=== PATIENT | male | born 1990 | race Asian ===

== ENCOUNTER 2021-11-15 22:03 | Emergency (ER) | payer BC, SELFPAY ==
[2021-11-15 22:04] VITALS: BP 167/111; PULSE 117; RESP 16; TEMP 36.9; O2SAT 98; BMI 25.0
--- NOTE | 2021-11-15 22:18 | CT_ITS ---
EXAM: CT ABDOMEN AND PELVIS WITHOUT INTRAVENOUS CONTRAST CLINICAL INDICATION: abd pain TECHNIQUE: Helically acquired images were obtained of the abdomen and pelvis without intravenous contrast. CTDIvol = ( 6.64 ) mGy, DLP = ( 354.85 ) mGycm This CT exam was performed using one or more of the following dose reduction techniques: automated exposure control, adjustment of the mA and/or kV according to patient size, and/or use of iterative reconstruction technique. This report was created using [employer] report generation technology. COMPARISON: None. FINDINGS: LOWER THORAX: Unremarkable. Lung bases are clear. No cardiomegaly. No significant pericardial effusion. ABDOMEN: LIVER: Unremarkable. Homogeneous. GALLBLADDER AND BILE DUCTS: Unremarkable. No calcified gallstones. No gallbladder distention or wall edema. No intra- or extrahepatic biliary ductal dilation. PANCREAS: Unremarkable. No focal cystic mass. SPLEEN: Unremarkable. Normal size without focal cystic or solid mass. ADRENALS: Unremarkable. No nodules. KIDNEYS AND URETERS: Unremarkable. Normal renal size and position. No hydronephrosis. STOMACH AND BOWEL: Unremarkable. No stomach or bowel distention. No focal inflammatory change. PELVIS: APPENDIX: No evidence of acute appendicitis. BLADDER: Unremarkable. REPRODUCTIVE: Unremarkable as visualized. No mass. ABDOMEN and PELVIS: INTRAPERITONEAL SPACE: Unremarkable. No ascites or other fluid collection. No free air. BONES/JOINTS: Unremarkable. No suspicious lytic or blastic abnormality. SOFT TISSUES: Unremarkable. No discrete abdominal or pelvic wall hernia. VASCULATURE: Unremarkable. Abdominal aorta is non-dilated. LYMPH NODES: Unremarkable. No enlarged lymph nodes. CT/Abdomen/Pelvis without Cont IMPRESSION: Stool and gas throughout the colon. No acute disease or bowel obstruction. Electronically Signed: Yousif Gould MD at 0:59 EDT ,
--- NOTE | 2021-11-15 22:20 | EX.ED.DYSGE1 ---
HPI History of Present Illness Chief Complaint: Other, Pain/Inj Informant: patient Narrative Narrative: Patient present secondary to worsened abdominal pain. 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 Today the pain significantly worsened and is more stabbing in nature. He holds his left mid abdomen and describing the area of pain. He does report nausea but no vomiting. No diarrhea. No fever or chills. He had told nursing staff that his arm and leg hurt on the left side as well and he felt that they were different colors than the right side. There was no differential noted on their exam. PFSH PFSH Medical History no medical history no medical history Home Medications pantoprazole [Protonix] 40 mg PO DAILY 28 Days #28 tab 11/16/21 [Rx Last Taken Unknown] polyethylene glycol 3350 [Miralax] 17 g PO DAILY #14 ea 11/16/21 [Rx Last Taken Unknown] Allergy/AdvReac Type Severity Reaction Status Date / Time No Known Allergies Allergy Verified 11/15/21 22:08 Surgical History no surgical history no surgical history Social History Smoking Status: Never smoker ROS ROS ED Constitutional Constitutional ED: Denies chills or fever(s) Eyes Eyes: Denies blurry vision ENT ENT ED: Denies ear pain or rhinorrhea Cardiovascular Cardiovascular: Denies chest pain or palpitations Respiratory/Chest Respiratory/Chest: Denies cough or dyspnea Gastrointestinal Gastrointestinal: Reports abdominal pain and nausea; Denies diarrhea or vomiting Genitourinary Genitourinary ED: Denies dysuria or hematuria Musculoskeletal Musculoskeletal: Denies back pain or neck pain Integumentary Denies rash Neurologic Neurologic: Denies weakness Allergic/Immunologic Allergic/Immunologic ED: Denies urticaria EXAM Physical Exam Const Vital Signs: 11/15/21 22:04 11/15/21 22:35 11/16/21 01:20 Temperature 98.4 F 98.6 F Temperature Source Temporal Oral Pulse Rate 117 H 91 Respiratory Rate 16 20 H 16 Blood Pressure 167/111 H 142/100 H Blood Pressure Mean 129 114 Pulse Ox 98 98 Oxygen Delivery Method Room Air Room Air Positive well nourished and well developed General Appearance ED: well developed HEENT Reports moist mucous membranes Neck supple Chest Wall inspection of chest normal and palpation of chest normal Resp normal respiratory effort and clear to auscultation bilaterally Cardio Rate: tachycardic GI GI Narrative: Mid abdominal tenderness of patient with voluntary guarding. Hypoactive bowel sounds. Extremity normal to inspection Neuro oriented x3 Sensorium / Orientation: alert Psych Mood & Affect: anxious Skin no rashes or lesions noted MDM MDM MDM Narrative Medical decision making narrative: Patient was given Toradol and Zofran for pain and nausea. Lab work and CT flank obtained. Urinalysis ordered. Lab Data Attestation: I reviewed the patient's lab results. Labs: Laboratory Results - last 24 hr 11/15/21 11/15/21 11/16/21 22:28 22:28 00:07 WBC 15.5 H RBC 5.67 Hgb 17.7 H Hct 50.3 MCV 88.7 MCH 31.2 MCHC 35.2 RDW Std Deviation 39.8 RDW Coeff of Tj 12.2 Plt Count 396 MPV 8.8 Immature Gran % (Auto) 0.400 Neut % (Auto) 76.8 H Lymph % (Auto) 15.0 L [place] % (Auto) 6.8 Eos % (Auto) 0.3 Baso % (Auto) 0.7 Absolute Neuts (auto) 11.9 H Absolute Lymphs (auto) 2.32 Nucleated RBC % 0 Sodium 140 Potassium 3.2 L Chloride 106 Carbon Dioxide 25.0 Anion Gap 9 BUN 10 Creatinine 1.22 Estim Creat Clear Calc 100.97 Est GFR (MDRD) Af Amer 90 Est GFR (MDRD) Non-Af 74 BUN/Creatinine Ratio 8.2 L Glucose 147 H Calcium 9.9 Total Bilirubin 5.20 H Direct Bilirubin 0.25 AST 23 ALT 24 Alkaline Phosphatase 59 Total Protein 8.0 Albumin 4.9 Globulin 3.1 Lipase 58 L Urine Color Yellow Urine Clarity Clear Urine pH 7.0 Ur Specific [place] 1.015 Urine Protein 30 H Urine Glucose (UA) Normal Urine Ketones 5 H Urine Occult Blood 10 H Urine Nitrite Negative Urine Bilirubin Negative Urine Urobilinogen Normal Ur Leukocyte Esterase Negative Urine RBC 0 SEEN Urine WBC 0 SEEN Ur Squamous Epith Cells 0 SEEN Urine Bacteria 0 SEEN Urine Mucus 0 SEEN Radiography Diagnostic Testing: Clinical Impression(s) from Imaging Studies Abdomen/Pelvis CT 11/15/21 22:18 IMPRESSION: Stool and gas throughout the colon. No acute disease or bowel obstruction. Electronically Signed: Yousif Gould MD at 0:59 EDT , Treatment and Re-Evaluation Narrative: Lab work does reveal white count of 15.5 with 76% neutrophils. Chemistry studies significant for mildly low potassium at 3.2. His total bilirubin is 5.2. 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 Urinalysis unremarkable. CT flank reveals increased stool. No abnormalities noted at the gallbladder. With patient's white count and pain with elevated total bili I did speak with Dr. Barreto, on-call for surgery. She suggested starting the patient on Protonix and MiraLAX to treat his constipation. He can follow-up in the office if not improving. This was discussed with patient and prescription sent to local pharmacy for him. Discharge Plan Triage Chief Complaint: Other, Pain/Inj ED Provider: Marleni Sparks Dx/Rx/DC Orders Clinical Impression: Abdominal pain, Constipation Instructions: Abdominal Pain, ED Constipation (Adult) Prescriptions: New pantoprazole [Protonix] 40 mg tablet,delayed release (DR/EC) 40 mg PO DAILY 28 Days Qty: 28 RF: 0 polyethylene glycol 3350 [Miralax] 17 gram powder in packet 17 g PO DAILY Qty: 14 RF: 0 Primary Care Provider: Care Physician,No Primary Referrals: Marline Barreto MD [STAFF PHYSICIAN] - As Needed Care Physician,No Primary [Primary Care Provider] - Disposition Disposition: Home, Self Care Discharge Date/Time: 11/16/21 02:19
[2021-11-15 22:35] VITALS: BP 142/100; PULSE 91; RESP 20; TEMP 37; O2SAT 98
[2021-11-15 22:41] LABS: Absolute Lymphocyte Count 2.32 X10^3/uL (0.83-4.51); Absolute Neutrophil Count 11.9 X10^3/uL (2.0-7.7); Basophil# 0.11 X10^3/uL; Basophil% 0.7 % (0-1); Eosinophil# 0.04 X10^3/uL; Eosinophils% 0.3 % (0-5); Hematocrit 50.3 % (40-54); Hemoglobin 17.7 g/dL (13.0-16.5); Lymphocyte # 2.32 X10^3/ul (0.83-4.51); Mean Corp Hgb Conc 35.2 g/dL (32-36); Mean Corpuscular Hgb 31.2 pg (27.0-32.0); Mean Corpuscular Volume 88.7 fL (80-94); Mean Platelet Vol. 8.8 fl (6.2-12.0); Monocyte# 1.06 X10^3/uL; Monocyte% 6.8 % (0-10); NRBC Flagged by Analyzer 0 % (0-5); Neutrophil # 11.89 X10^3/uL (2.7-7.7); Neutrophil % 76.8 % (47-70); Platelet Count 396 K/mm3 (150-450); RBC Distribution Width CV 12.2 % (11.6-14.6); RBC Distribution Width SD 39.8 fl (35.1-43.9); Red Blood Count 5.67 M/mm3 (4.6-6.2); White Blood Count 15.5 K/mm3 (4.4-11.0)
[2021-11-15 22:57] LABS: AST(SGOT) 23 U/L (15-37); Alanine Aminotransfer ALT/SGPT 24 U/L (16-61); Albumin, Serum 4.9 g/dL (3.2-5.0); Alkaline Phosphatase 59 U/L (45-117); Anion Gap 9 (5-15); BUN 10 mg/dL (7-18); BUN/Creat Ratio 8.2 RATIO (10-20); Bilirubin, Direct 0.25 mg/dL (0.00-0.30); Calcium,Total 9.9 mg/dL (8.5-10.1); Chloride 106 mmol/L (98-107); Creatinine, Serum 1.22 mg/dL (0.70-1.30); EST Glomerular Filtration Rate 74 mL/min (>60); Est Glom Filt Rate - Afr Amer 90 mL/min (>60); Estimated Creatinine Clearance 100.97 ml/min; Globulin 3.1 g/dL (2.2-4.2); Glucose 147 mg/dL (74-106); Lipase 58 U/L (73-393); Potassium 3.2 mmol/L (3.5-5.1); Sodium Level 140 mmol/L (136-145)
[2021-11-15] MEDS: Ondansetron 4 MG/2 ML Vial IV (23:03)
[2021-11-15] MEDS: 0.9% Normal Saline 1,000 ML 150 ML IV (23:03)
[2021-11-15] MEDS: Ketorolac 30 MG/ML Syringe IV (23:03)
[2021-11-16 00:29] LABS: Bacteria 0 SEEN /hpf (None Seen); Mucous, Urine 0 SEEN /hpf (<or=2+); Red Blood Cells-Urine 0 SEEN /hpf (0-5); Squamous Epithelial Cells - UA 0 SEEN /hpf (0-5); White Blood Cells 0 SEEN /hpf (0-5)
[2021-11-16] MEDS: proMETHazine 25 MG Tablet PO (00:30)
[2021-11-16 00:38] LABS: Color, Urine Yellow (Yellow); Glucose, Dipstick Normal (Normal); Ketone-Dipstick 5 mg/dl (Negative); Leukocyte Esterase-Dipstick Negative /ul (Negative); Nitrite-Dipstick Negative (Negative); Occult Blood-Urine 10 /ul (Negative); Protein-Dipstick 30 mg/dl (Negative); Specific Gravity, Urine 1.015 (1.002-1.030); Urine Bilirubin Dipstick Negative (Negative); Urine Clarity Clear (Clear); Urine Urobilinogen Normal (Normal)
[2021-11-16 01:20] VITALS: RESP 16
--- NOTE | 2021-11-16 01:20 | ED.RN ---
PATIENT REMOVED IV.
== END 2021-11-16 02:19 | disposition home or self-care (01) ==
PROVIDERS: Emergency Provider Emergency Medicine; Visit Provider Emergency Medicine
DX: K59.00 Constipation, unspecified (principal)
CPT/HCPCS: 74176; 80048; 80076; 81001; 83690; 85025; 96361; 96374; 96375; 99282; J7030; A4216; J2405

== ENCOUNTER 2021-11-16 18:10 | Emergency (ER) | payer BC, SELFPAY ==
[2021-11-16 18:11] VITALS: BP 145/90; PULSE 78; RESP 14; TEMP 36.6; O2SAT 98; BMI 25.0
--- NOTE | 2021-11-16 18:23 | ED.VIS.LOWEX ---
HPI History of Present Illness Chief Complaint: Lower Extremity Injury Detail of Chief Complaint: Pain due to puncture wound plantar surface right foot due to glass Informant: patient Occured/Mechanism Comment: Broken glass/puncture wound Onset/Context/Timing Context: Sudden Onset Timing: Continuous (Pain is continuous, states he remove the foreign body last evening) Quality of Pain: Dull Current Severity: Mild Maximum Severity: Moderate Worsened by: Weightbearing Relieved by: Nothing Associated Symptoms Associated Symptoms: Negative for Parasthesia, Weakness and Loss of Funtion Narrative Narrative: Patient is a 31-year-old male presents with puncture wound plantar surface right foot. There is a wound noted. There is no erythema, warmth, induration or fluctuance. There is no lymphangitis. No drainage was noted with palpation and pressure to the area. He denies fever, chills or night sweats. He is not diabetic. He is on no immunosuppressive meds. He was not wearing shoes. Tetanus is unknown. Tetanus Immunization: Unknown Prior similar symptoms: No Recent Illness/Hospitalization: No PFSH PFSH Home Medications pantoprazole [Protonix] 40 mg PO DAILY 28 Days #28 tab 11/16/21 [Rx Last Taken Unknown] polyethylene glycol 3350 [Miralax] 17 g PO DAILY #14 ea 11/16/21 [Rx Last Taken Unknown] Allergy/AdvReac Type Severity Reaction Status Date / Time No Known Allergies Allergy Verified 11/16/21 18:11 Social History (Updated 11/16/21 @ 18:[address] Filippo Paez MD) household members: spouse Smoking Status: Never smoker substance use type: does not use ROS ROS ED Constitutional Constitutional ED: Denies chills, fever(s), subjective, sweats or weight loss Musculoskeletal Musculoskeletal: Denies arthralgias, back pain, myalgias or neck pain Integumentary Reports other Details: Puncture wound plantar surface right foot ; Denies abscess, Abrasions or rash Neurologic Neurologic: Denies paresthesias or weakness Hematologic/Lymphatic Hematologic/Lymphatic: Denies easy bleeding or easy bruising EXAM Physical Exam Const Vital Signs: 11/16/21 18:11 Temperature 98 F Temperature Source Temporal Pulse Rate 78 Respiratory Rate 14 Blood Pressure 145/90 H Blood Pressure Mean 108 Pulse Ox 98 Oxygen Delivery Method Room Air Positive well nourished and well developed General Appearance ED: well developed and NAD HEENT normocephalic and atraumatic Eyes PERRL Eyes Narrative: Extract muscle intact. Sclerae anicteric. Neck full ROM Resp normal respiratory effort Cardio regular rate and regular rhythm Extremity full ROM; Negative for normal to inspection Extremity Narrative: Puncture wound plantar surface of the right foot in the proximity of the second third metatarsal head. There is no evidence infection as previously described. General Extremety ED: Yes weight-bearing difficulty; Negative for cyanosis or edema General Extremity: weight-bearing difficulty; Negative for cyanosis or edema Neuro oriented x3 and CN's II-XII intact bilaterally Sensorium / Orientation: alert Motor Exam: strength 5/5 throughout Psych mental status grossly normal Skin No no wounds Lesions: no lesions Rashes: no rashes Trauma: puncture MDM MDM MDM Narrative Medical decision making narrative: X-ray was obtained to confirm the patient removed the glass in total. Tetanus was updated. Since there is no foreign body no evidence of infection antibiotics are not warranted or indicated. Radiography X-Ray: - (Three-view 3 of the right foot was independently interpreted by me as negative for foreign body. There is no bony abnormality. There is no soft tissue swelling. There is no subcutaneous air noted. X-rays interpreted by me at 1841.) Discharge Plan Triage Chief Complaint: Lower Extremity Injury ED Provider: Filippo Paez Dx/Rx/DC Orders Clinical Impression: Puncture wound of right foot Instructions: ED Puncture Wound (Foot) Prescriptions: No Action pantoprazole [Protonix] 40 mg tablet,delayed release (DR/EC) 40 mg PO DAILY 28 Days Qty: 28 RF: 0 polyethylene glycol 3350 [Miralax] 17 gram powder in packet 17 g PO DAILY Qty: 14 RF: 0 Primary Care Provider: Care Physician,No Primary Referrals: Jhony Carcamo MD [STAFF PHYSICIAN] - 2 Days for wound check Care Physician,No Primary [Primary Care Provider] - Disposition Disposition: Home, Self Care
--- NOTE | 2021-11-16 18:30 | RAD_ITS ---
HISTORY: Trauma, injury, pain-- Puncture wound due to broken glass EXAMINATION/TECHNIQUE: XR Foot Min 3 Views: COMPARISON: None FINDINGS: BONES/JOINTS: No acute fracture or dislocation. Preservation of the joint spaces. SOFT TISSUES: No soft tissue swelling or gas. No radiopaque foreign body. RAD/Foot min 3 Views IMPRESSION: No acute findings. at 1929 Reported and signed by: Roderick Hickman MD Electronically Signed: Roderick Hickman MD at 19:28 EDT ,
[2021-11-16] MEDS: Diphth,Pertuss(Acell),Tet Vac 0.5 ML Vial IM (19:17)
== END 2021-11-16 19:18 | disposition home or self-care (01) ==
PROVIDERS: Emergency Provider Emergency Medicine; Visit Provider Emergency Medicine
DX: S91.331A Puncture wound without foreign body, right foot, initial encounter (principal); W25.XXXA Contact with sharp glass, initial encounter; Y93.9 Activity, unspecified; Y92.9 Unspecified place or not applicable; Z23 Encounter for immunization
CPT/HCPCS: 73630; 90471; 90715; 99282

== ENCOUNTER 2021-11-17 21:37 | Emergency (ER) | payer BC, SELFPAY ==
[2021-11-17 21:38] VITALS: BP 124/90; PULSE 78; RESP 16; O2SAT 98
[2021-11-17 21:39] VITALS: BP 124/90; PULSE 78; RESP 19; TEMP 36.2; O2SAT 97; BMI 25.1
[2021-11-17 21:45] VITALS: BP 124/90; PULSE 92; RESP 16; TEMP 36.2; O2SAT 95
--- NOTE | 2021-11-17 22:08 | EKG12_ITS ---
Test Reason : PSYCH EVAL Blood Pressure : / mmHG Vent. Rate : 085 BPM Atrial Rate : 085 BPM P-R Int : 138 ms QRS Dur : 104 ms QT Int : 412 ms P-R-T Axes : 043 023 027 degrees QTc Int : 490 ms Normal sinus rhythm Prolonged QT Abnormal ECG No previous ECGs available Confirmed by ZOE LUNA, FLORNETINO ([id number]), website/blog editor PADMINI GALAVIZ ([id number]) on 11/19/2021 7:47:26 AM Referred By: BB Confirmed By:FLORENTINO ENRIQUEZ MD
--- NOTE | 2021-11-17 22:08 | CT_ITS ---
EXAM: CT brain without IV contrast. HISTORY: Change in Mental Status TECHNIQUE: CT Head or Brain W/O Contrast Injection 3.75 mm axials, 2.5 mm coronal and sagittal reconstructions COMPARISON: None. LIMITATIONS: Mild asymmetric positioning. DOSE REDUCTION: A dose reduction technique was utilized for this exam. BRAIN: Normal galo/white matter differentiation. VENTRICLES: No hydrocephalus. EXTRA-AXIAL SPACES: No hemorrhages, fluid collections, or masses. CALVARIUM/SKULL BASE: Normal. FACE/SINUSES: Visualized portions unremarkable with the exception of trace mucosal thickening in the right maxillary sinus. The extreme floor of the left maxillary sinus is not included. SOFT TISSUES: Normal. OTHER: None. CONCLUSION: No acute intracranial abnormality. Electronically Signed: Veronica Ryan MD at 0:12 EDT , CT/Brain/Head without Contrast
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
[2021-11-17 22:33] LABS: Absolute Lymphocyte Count 2.32 X10^3/uL (0.83-4.51); Absolute Neutrophil Count 9.5 X10^3/uL (2.0-7.7); Basophil# 0.08 X10^3/uL; Basophil% 0.6 % (0-1); Eosinophil# 0.16 X10^3/uL; Eosinophils% 1.2 % (0-5); Hematocrit 48.3 % (40-54); Hemoglobin 17.1 g/dL (13.0-16.5); Lymphocyte # 2.32 X10^3/ul (0.83-4.51); Lymphocyte % 17.9 % (19-41); Mean Corp Hgb Conc 35.4 g/dL (32-36); Mean Corpuscular Hgb 31.8 pg (27.0-32.0); Mean Corpuscular Volume 89.8 fL (80-94); Monocyte# 0.89 X10^3/uL; Monocyte% 6.9 % (0-10); NRBC Flagged by Analyzer 0 % (0-5); Neutrophil # 9.48 X10^3/uL (2.7-7.7); Platelet Count 374 K/mm3 (150-450); RBC Distribution Width CV 11.9 % (11.6-14.6); RBC Distribution Width SD 39.3 fl (35.1-43.9); Red Blood Count 5.38 M/mm3 (4.6-6.2)
[2021-11-17] MEDS: Ondansetron ODT 4 MG Tablet 8 MG PO (22:38)
[2021-11-17 22:57] LABS: ALB/GLOB Ratio 1.6 RATIO (0.9-2.4); AST(SGOT) 29 U/L (15-37); Alanine Aminotransfer ALT/SGPT 25 U/L (16-61); Albumin, Serum 4.4 g/dL (3.2-5.0); Alkaline Phosphatase 52 U/L (45-117); Anion Gap 9 (5-15); BUN 14 mg/dL (7-18); BUN/Creat Ratio 9.7 RATIO (10-20); Chloride 107 mmol/L (98-107); Creatinine, Serum 1.44 mg/dL (0.70-1.30); EST Glomerular Filtration Rate 61 mL/min (>60); Est Glom Filt Rate - Afr Amer 74 mL/min (>60); Estimated Creatinine Clearance 85.54 ml/min; Globulin 2.7 g/dL (2.2-4.2); Glucose 125 mg/dL (74-106); Potassium 3.1 mmol/L (3.5-5.1); Protein, Total 7.1 g/dL (6.4-8.2); Sodium Level 141 mmol/L (136-145)
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
[2021-11-17 23:08] LABS: Alcohol, Blood (Medical)-Serum < 3.0 mg/dL
[2021-11-17 23:17] VITALS: BP 118/72; PULSE 89; RESP 16; TEMP 36.6
[2021-11-17 23:18] LABS: Osmolality, Serum 319 mOsm/KG (275-295)
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
[2021-11-18] VITALS (7 sets, daily range): BP systolic 119–134; BP diastolic 62–107; PULSE 71–95; RESP 15–19; O2SAT 97–99
--- NOTE | 2021-11-18 00:07 | ED.RN ---
PTS MOM: FRANKIE PHONE NUMBER [phone]
[2021-11-18] MEDS: Potassium Chloride Oral Tablet 20 MEQ 40 MEQ PO (00:10)
--- NOTE | 2021-11-18 00:33 | ED.RN ---
PT RIPPING OFF MONITOR AND CORDS, THROWING EQUIPMENT. THIS RN VERBALLY DEESCALATED & EDUCATED PATIENT
[2021-11-18 01:08] LABS: Acetaminophen (Tylenol) Level < 2.0 ug/mL (10.0-30.0); Salicylate < 1.7 mg/dL (2.8-20.0)
[2021-11-18 02:08] LABS: Amphetamine Urine VISTA NEGATIVE (<1000 ng/mL); Barbiturate Urine VISTA NEGATIVE (< 200 ng/mL); Benzodiazepine Urine VISTA NEGATIVE (< 200 ng/mL); Cocaine Urine VISTA NEGATIVE (< 300 ng/mL); Ecstacy Urine VISTA NEGATIVE (< 500 ng/mL); Methadone Urine VISTA NEGATIVE (< 300 ng/mL); PCP Urine VISTA NEGATIVE (< 25 ng/mL); THC Urine VISTA NEGATIVE (< 50 ng/mL); Vista UDS pH Range 5
[2021-11-18 02:49] LABS: Anion Gap 5 (5-15); BUN 13 mg/dL (7-18); BUN/Creat Ratio 7.8 RATIO (10-20); Calcium,Total 8.7 mg/dL (8.5-10.1); Chloride 108 mmol/L (98-107); Creatinine, Serum 1.66 mg/dL (0.70-1.30); EST Glomerular Filtration Rate 52 mL/min (>60); Est Glom Filt Rate - Afr Amer 63 mL/min (>60); Glucose 118 mg/dL (74-106); Potassium 3.7 mmol/L (3.5-5.1); Sodium Level 141 mmol/L (136-145)
[2021-11-18] MEDS: 0.9% Normal Saline 1,000 ML 999 ML IV ×3 (03:01→06:06)
--- NOTE | 2021-11-18 03:46 | ED.RN ---
pt removed IV for the second time, pt educated on why he needs to keep it in. This RN placed another IV in left AC and wrapped with kerlex wrap.
[2021-11-18] MEDS: OLANZapine 5 MG/TAB TAB.RAPDIS 10 MG PO (04:01)
[2021-11-18 04:56] LABS: Anion Gap 5 (5-15); BUN 13 mg/dL (7-18); BUN/Creat Ratio 7.6 RATIO (10-20); Calcium,Total 8.6 mg/dL (8.5-10.1); Chloride 107 mmol/L (98-107); EST Glomerular Filtration Rate 51 mL/min (>60); Est Glom Filt Rate - Afr Amer 61 mL/min (>60); Estimated Creatinine Clearance 72.46 ml/min; Glucose 135 mg/dL (74-106); Potassium 3.3 mmol/L (3.5-5.1); Sodium Level 141 mmol/L (136-145)
--- NOTE | 2021-11-18 05:01 | ED.RN ---
pt snoring with visible chest rise. Did not awaken. Will scan fluids from [facility] as he has ripped out 2 IVs and has a third one in his arm and do not want to stimulate him and risk him ripping out another line.
[2021-11-18 10:40] LABS: Anion Gap 3 (5-15); BUN 10 mg/dL (7-18); BUN/Creat Ratio 6.5 RATIO (10-20); Calcium,Total 8.3 mg/dL (8.5-10.1); Chloride 114 mmol/L (98-107); Creatinine, Serum 1.53 mg/dL (0.70-1.30); EST Glomerular Filtration Rate 57 mL/min (>60); Est Glom Filt Rate - Afr Amer 69 mL/min (>60); Estimated Creatinine Clearance 80.51 ml/min; Glucose 108 mg/dL (74-106); Potassium 3.8 mmol/L (3.5-5.1); Sodium Level 142 mmol/L (136-145)
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
--- NOTE | 2021-11-18 12:24 | CM.ED ---
Social Work Telephone call to [facility]. Referral made. Clinical information faxed. Telephone call to [facility]. Referral made. Clinical information faxed. Both facilities report to have open beds. Will continue to follow. Sheila CHAPA, MOJGAN
--- NOTE | 2021-11-18 13:03 | CM.ED ---
Social Work Telephone call from Faye Yuen, not in network with patient insurance and patient would have a 30% co-pay. Telephone call to [facility]. Voicemail left with referral information. Clinical information faxed. PLAN: Inpatient psychiatric placement. Sheila CHAPA, MOJGAN
--- NOTE | 2021-11-18 14:40 | CM.ED ---
Social Work Telephone call from Kalani Zarate. Requesting for a repeat lab to check Creatinine levels, want to make sure they are still going down. Medical team updated. Lab ordered. Will continue to follow. Sheila CHAPA, MOJGAN
--- NOTE | 2021-11-18 14:59 | CM.ED ---
Social Work Telephone call from leila Najera. Inquired how patient behavior has been in the ED. This social service technician provided updated. electrical line worker to speak with doctor and get back to this social service technician. Will continue to follow. Sheila CHAPA, MOJGAN
[2021-11-18 15:05] LABS: Anion Gap 4 (5-15); BUN 9 mg/dL (7-18); BUN/Creat Ratio 5.6 RATIO (10-20); Calcium,Total 8.6 mg/dL (8.5-10.1); Chloride 113 mmol/L (98-107); EST Glomerular Filtration Rate 54 mL/min (>60); Est Glom Filt Rate - Afr Amer 66 mL/min (>60); Estimated Creatinine Clearance 76.99 ml/min; Glucose 119 mg/dL (74-106); Potassium 4.1 mmol/L (3.5-5.1); Sodium Level 143 mmol/L (136-145)
--- NOTE | 2021-11-18 15:38 | CM.ED ---
Social Work Telephone call from KenyLeta Chin. Unable to accept patient with current creatinine level, would need to see at normal limits. Telephone call from Odalys Perez. Unable to accept patient with current creatinine level, would need to see normal lab[facility] Clinical information faxed. Will continue to follow. Sheila CHAPA, MOJGAN
--- NOTE | 2021-11-18 17:30 | ED.RN ---
Pt resting in bed watching TV. x2 glasses of water given per pt request. denies further need at this time
[2021-11-18 19:14] LABS: Anion Gap 3 (5-15); BUN 8 mg/dL (7-18); BUN/Creat Ratio 5.1 RATIO (10-20); Calcium,Total 8.5 mg/dL (8.5-10.1); Chloride 112 mmol/L (98-107); Creatinine, Serum 1.57 mg/dL (0.70-1.30); EST Glomerular Filtration Rate 56 mL/min (>60); Est Glom Filt Rate - Afr Amer 67 mL/min (>60); Estimated Creatinine Clearance 78.46 ml/min; Glucose 134 mg/dL (74-106); Potassium 4.3 mmol/L (3.5-5.1); Sodium Level 141 mmol/L (136-145)
--- NOTE | 2021-11-18 19:32 | CM.ED ---
Social Work Telephone call to [facility] Roberta Estrada. Referral is pending doctor review. Roberta to get back to this mental health social worker. Will continue to follow. Sheila CHAPA, MOJGAN
--- NOTE | 2021-11-18 19:52 | CM.ED ---
Social Work Telephone call from [facility]. Patient declined due to not being medically cleared. Will continue to follow. Sheila CHAPA, MOJGAN
--- NOTE | 2021-11-18 20:08 | CM.ED ---
Social Work Telephone call to [facility], intake. Clinical information faxed. [facility] to call main ED with determination. Telephone call to May Lo. This social science professor provided handoff as end of social work shift. Clinical information faxed in the event that crisis will need to look for further placement. Medical team updated. Sheila CHAPA, KRANTHI-S
--- NOTE | 2021-11-18 22:11 | ED.RN ---
Per pt he states he does not take any meds and no one else would be able to tell staff if he does or not.
[2021-11-18 23:13] LABS: Anion Gap 6 (5-15); BUN 14 mg/dL (7-18); BUN/Creat Ratio 8.4 RATIO (10-20); Calcium,Total 8.7 mg/dL (8.5-10.1); Chloride 110 mmol/L (98-107); Creatinine, Serum 1.67 mg/dL (0.70-1.30); EST Glomerular Filtration Rate 52 mL/min (>60); Est Glom Filt Rate - Afr Amer 63 mL/min (>60); Estimated Creatinine Clearance 73.76 ml/min; Glucose 112 mg/dL (74-106); Potassium 3.7 mmol/L (3.5-5.1); Sodium Level 143 mmol/L (136-145)
--- NOTE | 2021-11-18 23:22 | ED.RN ---
Dr. Landin updated on creat 1.67. Continue pushing water and recheck at 0240.
[2021-11-19] MEDS: Ibuprofen 600 MG Tablet PO (00:47)
[2021-11-19 01:00] VITALS: RESP 16
[2021-11-19 02:53] VITALS: BP 122/78; PULSE 71; RESP 15; O2SAT 98
[2021-11-19 03:08] LABS: Anion Gap 4 (5-15); BUN 15 mg/dL (7-18); BUN/Creat Ratio 10.1 RATIO (10-20); Calcium,Total 8.4 mg/dL (8.5-10.1); Chloride 109 mmol/L (98-107); Creatinine, Serum 1.49 mg/dL (0.70-1.30); EST Glomerular Filtration Rate 59 mL/min (>60); Est Glom Filt Rate - Afr Amer 71 mL/min (>60); Estimated Creatinine Clearance 82.67 ml/min; Glucose 133 mg/dL (74-106); Potassium 3.7 mmol/L (3.5-5.1); Sodium Level 141 mmol/L (136-145)
[2021-11-19 04:00] VITALS: RESP 14
[2021-11-19 05:26] VITALS: BP 117/79; PULSE 74; RESP 16; O2SAT 97
[2021-11-19 06:59] LABS: Anion Gap 4 (5-15); BUN 15 mg/dL (7-18); BUN/Creat Ratio 10.7 RATIO (10-20); Calcium,Total 8.1 mg/dL (8.5-10.1); Chloride 109 mmol/L (98-107); EST Glomerular Filtration Rate 63 mL/min (>60); Est Glom Filt Rate - Afr Amer 77 mL/min (>60); Estimated Creatinine Clearance 87.99 ml/min; Glucose 114 mg/dL (74-106); Potassium 3.5 mmol/L (3.5-5.1); Sodium Level 140 mmol/L (136-145)
[2021-11-19 07:45] VITALS: RESP 16
--- NOTE | 2021-11-19 08:49 | ED.RN ---
PT REQUESTING TO SPEAK WITH DR PIERRE
--- NOTE | 2021-11-19 10:17 | ED.RN ---
DR PIERRE AWARE PT CONTINUES TO REQUEST TO TALK TO HIM. DR BENITEZ
[2021-11-19] MEDS: Acetaminophen 325 MG Tablet 650 MG PO (10:35)
[2021-11-19 10:40] VITALS: BP 132/83; PULSE 87; RESP 16; TEMP 36.6; O2SAT 99
--- NOTE | 2021-11-19 11:42 | ED.RN ---
called report to Jayshree Lagos RN.
--- NOTE | 2021-11-19 11:49 | NURSING ---
CALLED [facility], ETA IS WITHIN THE HOUR
--- NOTE | 2021-11-19 12:59 | CM.ED ---
CORRIE received message that patient's mother, Miriam, wanted to speak with this pattern chart writer. CORRIE went to [employer] to look for patient's mother and she was gone. Patient's mother, Miriam, left voice mail for this pattern chart writer. CORRIE called [facility] and was advised that they did not have a referral for patient. CORRIE refaxed referral to [facility]. CORRIE received call from Leta. Patient has been accepted to [facility]. Accepting MD is Mi. RN to RN is [phone]. Leta asked that the MD document that the higher creatinine level is related to the alcohol use. Leta said that they accept patient's insurance and are in network. CORRIE asked the MD to updated the chart to state that patient was medically cleared and MD Troy agreed. CORRIE updated cycle counter and RN regarding patient's placement. CORRIE faxed the pink slip to [facility]. CORRIE updated Shari that transportation is needed for patient. CORRIE called patient's mother, Miriam and advised that patient was accepted at [facility]. CORRIE advised Miriam that the staff said that they accept patient's insurance and are in network. However, this pattern chart writer explained that this pattern chart writer is unsure about patient's benefits and for that insurance would need to be called. Miriam was given the address and phone number for [facility]. Corrie updated patient that he is going to [facility]. [facility]
== END 2021-11-19 14:37 ==
PROVIDERS: Emergency Medicine; Emergency Provider Emergency Medicine; Visit Provider Emergency Medicine
DX: F20.9 Schizophrenia, unspecified (principal); T51.2X1A Toxic effect of 2-Propanol, accidental (unintentional), initial encounter; S40.212A Abrasion of left shoulder, initial encounter; S20.412A Abrasion of left back wall of thorax, initial encounter; S00.01XA Abrasion of scalp, initial encounter; S90.811A Abrasion, right foot, initial encounter; W26.8XXA Contact with other sharp object(s), not elsewhere classified, initial encounter; Y93.9 Activity, unspecified; Y92.009 Unspecified place in unspecified non-institutional (private) residence as the place of occurrence of the external cause; K59.00 Constipation, unspecified
CPT/HCPCS: 36415; 70450; 73030; 80048; 80053; 80307; 80329; 82009; 82077; 83930; 84443; 85025; 87811; 93005; 96360; 96361; 99285; J7030; A4216; G0480

== ENCOUNTER 2022-03-11 22:06 | Emergency (ER) | payer MEDICAID, SELFPAY ==
[2022-03-11 22:07] VITALS: BP 132/85; PULSE 89; RESP 16; TEMP 36.4; O2SAT 95; BMI 26.4
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
[2022-03-11] MEDS: Fluorescein 1 MG STRIP 1 STRIP LEFT EYE (23:09)
[2022-03-11] MEDS: Tetracaine 0.5% Ophthalmic Bottle 1 DRP LEFT EYE (23:10)
== END 2022-03-11 23:17 | disposition home or self-care (01) ==
PROVIDERS: Emergency Provider Emergency Medicine; Visit Provider Emergency Medicine
DX: T20.26XA Burn of second degree of forehead and cheek, initial encounter (principal); X10.1XXA Contact with hot food, initial encounter; F17.210 Nicotine dependence, cigarettes, uncomplicated; T31.0 Burns involving less than 10% of body surface
CPT/HCPCS: 99282

== ENCOUNTER 2024-10-15 00:18 | Emergency (ER) | payer SELFPAY ==
[2024-10-15 00:21] VITALS: BP 173/100; PULSE 102; RESP 18; TEMP 36.6; O2SAT 100; BMI 24.4
[2024-10-15 01:28] LABS: Absolute Lymphocyte Count 2.04 X10^3/uL (0.83-4.51); Absolute Neutrophil Count 7.3 X10^3/uL (2.0-7.7); Basophil# 0.09 X10^3/uL; Basophil% 0.9 % (0-1); Eosinophil# 0.06 X10^3/uL; Eosinophils% 0.6 % (0-5); Hemoglobin 16.3 g/dL (13.0-16.5); Lymphocyte # 2.04 X10^3/ul (0.83-4.51); Lymphocyte % 19.5 % (19-41); Mean Corp Hgb Conc 36.2 g/dL (32-36); Mean Corpuscular Hgb 32.1 pg (27.0-32.0); Mean Corpuscular Volume 88.6 fL (80-94); Mean Platelet Vol. 9.8 fl (6.2-12.0); Monocyte# 0.93 X10^3/uL; Monocyte% 8.9 % (0-10); NRBC Flagged by Analyzer 0 % (0-5); Neutrophil # 7.27 X10^3/uL (2.7-7.7); Neutrophil % 69.6 % (47-70); Platelet Count 330 K/mm3 (150-450); RBC Distribution Width CV 11.7 % (11.6-14.6); RBC Distribution Width SD 37.3 fl (35.1-43.9); Red Blood Count 5.08 M/mm3 (4.6-6.2); White Blood Count 10.4 K/mm3 (4.4-11.0)
[2024-10-15 01:44] LABS: Anion Gap 10 (5-15); BUN 9 mg/dL (7-18); BUN/Creat Ratio 7.8 RATIO (10-20); Calcium,Total 9.7 mg/dL (8.5-10.1); Chloride 107 mmol/L (98-107); Creatinine, Serum 1.16 mg/dL (0.70-1.30); EST Glomerular Filtration Rate 77 mL/min (>60); Est Glom Filt Rate - Afr Amer 94 mL/min (>60); Estimated Creatinine Clearance 103.32 ml/min; Glucose 101 mg/dL (74-106); Sodium Level 140 mmol/L (136-145)
[2024-10-15 02:20] LABS: Amphetamine Urine NEGATIVE (<1000 ng/mL); Barbiturate Urine NEGATIVE (< 200 ng/mL); Benzodiazepine Urine NEGATIVE (< 200 ng/mL); Cocaine Urine NEGATIVE (< 300 ng/mL); Ecstacy Urine POSITIVE (< 500 ng/mL); Methadone Urine NEGATIVE (< 300 ng/mL); Opiates Urine NEGATIVE (< 300 ng/mL); PCP Urine NEGATIVE (< 25 ng/mL); THC Urine NEGATIVE (< 50 ng/mL); Vista UDS pH Range 6
--- NOTE | 2024-10-15 02:26 | ED.RN ---
CRISIS WAS CALLED @219 ABOUT PT BEING REFERRED
[2024-10-15] MEDS: Potassium Chloride Oral Tablet 20 MEQ 40 MEQ PO (05:05)
--- NOTE | 2024-10-15 05:17 | ED.RN ---
PT WAS DENIED PLACMENT @ [facility] @0423. WILL BE REFFERED TO [facility] IN MORNING ([phone] JAIME).
[2024-10-15 05:20] VITALS: BP 136/85; PULSE 99; RESP 18; O2SAT 97
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
[2024-10-15] MEDS: LORazepam 1 MG Tablet PO (09:42)
[2024-10-15 13:00] VITALS: BP 123/84; PULSE 77; RESP 16; O2SAT 100
--- NOTE | 2024-10-15 17:19 | ED.RN ---
I REACHED OUT TO CRISIS @ 1713. MARY FROM CRISIS WILL BE OUT TO DO A 24 HR ASSESSMENT SHORTLY. [facility] WILL NOT HAVE ANY MALE BEDS AVAILABLE TODAY 10/15/24 AND THEY DO NOT HAVE ANY FUNDING LEFT.
--- NOTE | 2024-10-15 19:46 | CM.ED ---
Social Work SW attempted to speak with patient twice this morning, however patient was in bed with eyes closed and was not able to converse. SW stopped back in room later, patient was alert and walking around room. Patient asked SW what was happening with placement. SW explained to patient that we were waiting on a bed at [place], that he would likely be staying in the ED another night. Patient stated understanding and told SW he had no other questions. Liv Tucker, TAILOR GARMENT FITTER, CLAY PREPARATION SUPERVISOR
--- NOTE | 2024-10-15 20:55 | ED.RN ---
Pt. pacing around room, speaking to self very quietly and standing very closely to sitter. pt. asked to take a few steps back and he did. Pt. then asked to use the rest room and continued to speak quietly to himself. This Rn concerned to what could be escalating behaviors, conversation was had with pt. and he agreed to a medication to help him get some sleep as he would not be placed in any psych facility tonight. RAVI Baker given to pt.
[2024-10-15] MEDS: Ziprasidone IM 20 MG/ML VIAL IM (20:57)
[2024-10-15 21:00] VITALS: BP 110/78; PULSE 74
--- NOTE | 2024-10-15 21:19 | ED.RN ---
I CALLED MARY FROM CRISIS TO INFORM HIM THAT PT WAS JUST MEDICATED AT 2114 AND AT 24 HOUR MARIS FOR REVEAL (0000 JAIME) PT WOULD BE ASLEEP. MARY SAID THAT KATLYN BYRD WAS NOW HANDLING THE CASE DUE TO HER WORK IN THE AFTERNOON AND THAT REVEAL WORKED THE 24 HOUR MARIS AND SO, CRISIS IS NOT COMING IN TO REVALUATE PT. MARY DID SAY THAT IF WE NEED CRISIS AT ANY TIME FOR THE PT TO SPEAK TO THEY ARE AVAILABLE TO CALL. PT STILL PENDING AT [facility], THEY HAVE NO MALE BEDS AT THIS TIME SO WAITING UNTIL TOMORROW FOR AVAILABILITY.
[2024-10-16 05:00] VITALS: RESP 16
--- NOTE | 2024-10-16 05:29 | EKG12_ITS ---
Test Reason : ARRYTH Blood Pressure : */* mmHG Vent. Rate : 66 BPM Atrial Rate : 66 BPM P-R Int : 122 ms QRS Dur : 94 ms QT Int : 422 ms P-R-T Axes : 52 63 49 degrees QTcB Int : 442 ms Normal sinus rhythm with sinus arrhythmia Normal ECG Confirmed by Inder Block ([id number]), science editor BEHZAD ANTUNEZ ([id number]) on 10/17/2024 8:19:35 AM Referred By: Confirmed By: Inder Block
--- NOTE | 2024-10-16 08:56 | ED.RN ---
I CALLED ALAN FROM CRISIS @ 1118, SHE SAID SHE TALKED TO YOEL (IMPORT DISPATCHER/CNO) FROM [facility] AT 0800. HE SAID TO CALL BACK AFTER 0900 AM WHEN THEY HAVE THEIR DISCHARGE MEETING. SHE WILL BE CALLING BACK SHORTLY WITH AN UPDATE FROM [facility] THEN.
[2024-10-16] MEDS: Venlafaxine XR 150 MG Capsule PO (09:37)
[2024-10-16] MEDS: hydrOXYzine PAM 25 MG Capsule 50 MG PO (09:37)
--- NOTE | 2024-10-16 09:59 | ED.RN ---
THE COUNSELING CENTER CALLED WITH UPDATE. THEY STATE [facility] HAD 2 D/C'S THIS AM BUT THE BEDS ALREADY GOT FILLED SO THE EARLIEST ANTICIPATED PLACEMENT IS NOW TOMORROW. SHE STATES THEY ARE SENDING OUT A STOCK PATCH SAWYER THIS MORNING TO REEVALUATE HIM
[2024-10-16 13:00] VITALS: PULSE 84; RESP 16; O2SAT 99
--- NOTE | 2024-10-16 13:21 | CM.ED ---
Social work After speaking with Charito from Crisis in person, Charito mentioned patient may benefit from Medicaid application due to having zero income currently. Receiving pending Medicaid could open up other potential placement options. Around 1230, called Johanna with [facility] and left a secure voicemail asking for a call back. Received return call around 1320 from Johanna stating ability to come speak with patient. Johanna was warned that per Charito, patient is paranoid and believes Secret [employer] is after patient which could make Johanna getting many details to be difficult. Johanna expressed understanding. Plan: still attempting inpatient psychiatric placement at [place] after 24 hour re-eval Mony Pal, C WPF DEVELOPER, C ARCHITECT
[2024-10-16] MEDS: LORazepam 1 MG Tablet PO (16:09)
[2024-10-16] MEDS: Ziprasidone IM 20 MG/ML VIAL IM (17:16)
--- NOTE | 2024-10-16 17:23 | CM.ED ---
Social work 9450: Received return call from Johanna with [facility]. Patient reportedly refused to apply for Medicaid with Johanna at this time. Mony Pal, WEB CONSULTANT, HOTEL AND DINING ROOM CASHIER
[2024-10-16 21:00] VITALS: BP 128/76; PULSE 80; RESP 18; O2SAT 97
--- NOTE | 2024-10-16 21:06 | ED.RN ---
Pt was seen putting restraints back on himself and messing with the blood pressure cuff, taking it off of himself and messing with the wires. This RN removed the monitor and Deja RN took the restraints away.
--- NOTE | 2024-10-17 00:25 | ED.RN ---
Pt requesting a phone, this RN provided one and stated You have 15 minutes to use it. Pt is attempting to call someone on a business card that was given to him. This RN informed him that they were closed and crisis already evaluated him earlier today and that they would be back tomorrow. Patient rolled his eyes. This RN stated SW would be back at 10 am because he was requesting to speak to them as well.
--- NOTE | 2024-10-17 00:52 | ED.RN ---
Patient requested to see this RN again, Stated I am enacting a form that I signed in middle school. And I want to see my pink slip. This RN said No, you aren't seeing your pink slip because of what happened earlier. The pink slip states what you told crisis and the doctor earlier and nothing can be changed. Patient stated [facility] will accept me, send me to [place]. This RN states crisis handles all of that, we do not have a say. and you will stay within the state of [place]. Patient continued to argue regarding his pink slip and that I am being held here against my will. This RN verbally deescalated and gave the pt cookies and milk and apologized for his troubles.
[2024-10-17] MEDS: Ziprasidone IM 20 MG/ML VIAL IM (01:15)
[2024-10-17 04:57] VITALS: RESP 18
[2024-10-17 06:43] VITALS: BP 120/84; PULSE 80; RESP 18; O2SAT 100
--- NOTE | 2024-10-17 08:16 | ED.RN ---
[facility] CALLED AT 0815 AND ASKED FOR AN UPDATE ON THE PT. SAID THEY SHOULD HAVE A BED TODAY.
--- NOTE | 2024-10-17 08:37 | ED.RN ---
ACCEPTED AT [facility] @ [address] MCCRAY. GOING TO ROOM C2. BRAND MANAGER TIME [id number]
[2024-10-17] MEDS: hydrOXYzine PAM 25 MG Capsule 50 MG PO (09:05)
[2024-10-17 09:20] VITALS: BP 120/84; PULSE 80; RESP 18; TEMP 36.6; O2SAT 100
== END 2024-10-17 09:22 ==
PROVIDERS: Emergency Provider Emergency Medicine; PCP Family Medicine; Visit Provider Emergency Medicine
DX: F31.9 Bipolar disorder, unspecified (principal); R45.851 Suicidal ideations; F41.9 Anxiety disorder, unspecified; F17.210 Nicotine dependence, cigarettes, uncomplicated; Z79.899 Other long term (current) drug therapy; R45.1 Restlessness and agitation
CPT/HCPCS: 80048; 80307; 82077; 85025; 93005; 96372; 99284

== ENCOUNTER 2025-07-04 18:24 | Emergency (ER) | payer MEDICAID, SELFPAY ==
[2025-07-04 18:24] VITALS: BP 147/112; PULSE 138; RESP 20; TEMP 36.1; O2SAT 97; BMI 28.4
--- NOTE | 2025-07-04 18:33 | EDS_ITS ---
HPI HPI - Psych History of Present Illness Chief Complaint: Mental Health Narrative Narrative: Patient is a 35-year-old male presenting to the emergency department for "spiraling". Patient has a past medical history of bipolar disorder which was diagnosed when he was 21. States he takes Effexor and Seroquel as prescribed. He drinks alcohol daily. Denies SI or HI. States that he feels like he has been spiraling recently. He will not provide additional details. Reports that he drinks alcohol frequently but does not drink daily. Denies history of alcohol withdrawal symptoms. Reportss that he did drink alcohol today. Denies hallucinations, delusions or paranoia. 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 Hernia Thyroid nodule Chronic ear infection Home Medications Medication Instructions Recorded Last Taken Type hydroxyzine HCl 50 mg tablet 50 mg PO TID PRN PRN anxi ety 07/04/25 Unknown History quetiapine 400 mg tablet,extended 400 mg PO QHS Unknown History release 24 hr venlafaxine 37.5 mg 37.5 mg PO DAILY 07/04/25 Un known History capsule,extended release 24 hr Allergy/AdvReac Type Severity Reaction Status Date / Time No Known Allergies Allergy Verified 07/04/25 18:24 Social History household members: spouse Smoking Status: Current some day smoker tobacco type: cigarettes substance use type: does not use ROS ROS ED ROS Narrative see HPI EXAM Physical Exam Narrative Exam Narrative: Vital signs: Reviewed General: Alert and orientedx3. No acute distress HEENT: Head is normocephalic and atraumatic, sinuses nontender, pupils equal round and reactive. Nares are patent. Oropharynx and throat exams normal. Neck: Supple without lymphadenopathy nontender Cardiovascular: Tachycardic rate and regular rhythm, no murmurs. No rubs or gallops. Normal S1 and S2 Respiratory: Clear to auscultation bilaterally. No wheezes, rales, rhonchi Abdominal: Soft and nontender. Normal bowel sounds. No guarding or rebound. Nonsurgical abdomen Extremities: No tenderness. No bruising. Normal range of motion. Normal sensation. Skin: No rash or redness. Diaphoretic. Neurological: Cranial nerves II through XII are grossly intact. Normal strength and sensation. Normal cerebellar function The rest of the physical exam is unremarkable Const Vital Signs: 07/04/25 18:24 07/04/25 19:24 Temperature 96.9 F L Temperature Source Temporal Pulse Rate 138 H 85 Respiratory Rate 20 H 16 Blood Pressure 147/112 H 125/85 H Blood Pressure Mean 123 98 Pulse Ox 97 96 Oxygen Delivery Method Room Air Room Air Psych mental status grossly normal Appearance: grossly normal and appropriate Attitude: bizarre, evasive and agitated Activity / Motor Behavior: fidgetting, hyperactive, disorganized and restless Speech: excessive Mood & Affect: labile affect Thought Process: tangential and racing thoughts Thought Content: No suicidality, No homicidality, No phobia(s), No delusion(s) and No hallucination(s) Attention / Concentration: attention grossly intact MDM MDM MDM Narrative Medical decision making narrative: Patient is a 35-year-old male presenting to the emergency department for "spiraling" and request for a 72-hour hold. Patient was seen and examined. Vitals are stable. He is tachycardic, diaphoretic and fidgeting in the room. Appears anxious. Admits to using alcohol today. He does acutely appear manic. Compliant with his meds reportedly. Medical clearance labs ordered. Social work evaluated the patient and agreed with admission to inpatient psychiatric facility given the patient is not agreeable to safety planning for home. Medical clearance labs are unremarkable. Mild alcohol intoxication noted on labs. Cannabinoid urine drug screen positive. EKG shows sinus tachycardia. No dysrhythmia. No ischemic changes. Patient pink slipped. Will await placement for the patient. Clinical impression: Manic History & Record Review Discussion w/independent historian: Patient Lab Data Attestation: I reviewed the patient's lab results. Labs: Laboratory Results - last 24 hr 07/04/25 07/04/25 18:38 18:58 WBC 9.6 RBC 5.50 Hgb 16.2 Hct 46.7 MCV 84.9 MCH 29.5 MCHC 34.7 RDW Std Deviation 36.8 RDW Coeff of Tj 11.9 Plt Count 279 MPV 9.1 Immature Gran % (Auto) 0.300 Neut % (Auto) 57.1 Lymph % (Auto) 32.0 Sullivan % (Auto) 7.3 Eos % (Auto) 2.5 Baso % (Auto) 0.8 Absolute Neuts (auto) 5.5 Absolute Lymphs (auto) 3.08 Nucleated RBC % 0 Sodium 139 Potassium 3.4 Chloride 104 Carbon Dioxide 20.9 L Anion Gap 14 BUN 13 Creatinine 1.06 Estim Creat Clear Calc 122.11 Est GFR (MDRD) Non-Af 95 BUN/Creatinine Ratio 11.8 Glucose 112 H Calcium 9.5 Urine Opiates Screen NEGATIVE U Buprenorphine Qual NEGATIVE Ur Oxycodone Screen NEGATIVE Urine Methadone Screen NEGATIVE Urine Fentanyl Screen NEGATIVE Ur Barbiturates Screen NEGATIVE Ur Phencyclidine Scrn NEGATIVE Ur Amphetamines Screen NEGATIVE U Benzodiazepines Scrn NEGATIVE Urine Cocaine Screen NEGATIVE U Cannabinoids Screen PRESUMPTIVE POSITIVE Ethyl Alcohol 81.3 H Discharge Plan Triage Chief Complaint: Mental Health ED Provider: Randee Ramon Dx/Rx/DC Orders Prescriptions: No Action venlafaxine 37.5 mg capsule,extended release 24hr 37.5 mg PO DAILY quetiapine 400 mg tablet extended release 24 hr 400 mg PO QHS hydroxyzine HCl 50 mg tablet 50 mg PO TID PRN PRN (Reason: anxiety) Primary Care Provider: Manny Godfrey Referrals: Manny Godfrey MD [Primary Care Provider, Medical] Print Language: Japanese
--- NOTE | 2025-07-04 18:46 | EKG12_ITS ---
Test Reason : PSYCH Blood Pressure : */* mmHG Vent. Rate : 118 BPM Atrial Rate : 118 BPM P-R Int : 174 ms QRS Dur : 102 ms QT Int : 348 ms P-R-T Axes : 33 32 16 degrees QTcB Int : 487 ms Sinus tachycardia QTcB >= 480 msec Abnormal ECG Confirmed by CAROLYN LUNA, LIZZETH ([id number]), visual effects editor BEHZAD ANTUNEZ ([id number]) on 07/08/2025 8:37:07 AM Referred By: Confirmed By: LIZZETH LEON MD
[2025-07-04 19:24] VITALS: BP 125/85; PULSE 85; RESP 16; O2SAT 96
[2025-07-04 19:30] LABS: Hematocrit 46.7 % (40-54); Hemoglobin 16.2 g/dL (13.0-16.5); Immature Granulocytes Count 0.030 X10^3/uL (0.0-0.0); Mean Corp Hgb Conc 34.7 g/dL (32-36); Mean Corpuscular Volume 84.9 fL (80-94); Mean Platelet Vol. 9.1 fl (6.2-12.0); NRBC Flagged by Analyzer 0 % (0-5); Platelet Count 279 K/mm3 (150-450); RBC Distribution Width CV 11.9 % (11.6-14.6); RBC Distribution Width SD 36.8 fl (35.1-43.9); Red Blood Count 5.50 M/mm3 (4.6-6.2); White Blood Count 9.6 K/mm3 (4.4-11.0)
[2025-07-04 19:32] LABS: Alcohol, Blood (Medical)-Serum 81.3 mg/dL (<=10.0); Anion Gap 14 (5-15); BUN 13 mg/dL (4-19); BUN/Creat Ratio 11.8 RATIO (10-20); Calcium,Total 9.5 mg/dL (7.6-11.0); Carbon Dioxide 20.9 mmol/L (21.0-32.0); Chloride 104 mmol/L (98-108); Estimated Creatinine Clearance 122.11 ml/min (50-250); Glucose 112 mg/dL (70-99); Potassium 3.4 mmol/L (3.3-5.1)
[2025-07-04 19:41] LABS: Barbiturate Urine NEGATIVE (< 200 ng/mL); Benzodiazepine Urine NEGATIVE (< 200 ng/mL); PCP Urine NEGATIVE (< 25 ng/mL); THC Urine PRESUMPTIVE POSITIVE (< 50 ng/mL)
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
--- NOTE | 2025-07-04 21:24 | CM.ED ---
Social work 2114: called [facility] (ph: ) and 1 bed available. Referral packet faxed (f: ). 2139: handoff to Hans at Crisis due to timing (ph: [phone]) and referral packet faxed (f: ). 2199: pre sales technical consultant updated on plan. Plan: placement, pending acceptance. Mony Pal, DRESSER TENDER, COMMERCIAL PILOT
--- NOTE | 2025-07-04 22:27 | PCA ---
JANICE PETE CALLED AND STATED [facility] IN [place] WILL ACCEPT. THEY JUST NEED A NEW SET OF VITALS TAKEN AND FAXED OVER. RN NOTIFIED AND VITALS WILL BE FAXED SOON THEY ARE DONE.
--- NOTE | 2025-07-05 00:13 | PCA ---
PT ACCEPTED TO [facility] [phone] OPT[facility]
--- NOTE | 2025-07-05 01:05 | ED.RN ---
Report called to Ran INMAN @ [facility]
[2025-07-05 01:20] VITALS: BP 125/85; PULSE 85; RESP 16; TEMP 36.7; O2SAT 98
[2025-07-05 04:20] VITALS: BP 111/69; PULSE 69; RESP 18; O2SAT 98
== END 2025-07-05 07:26 ==
PROVIDERS: Emergency Provider Student in an Organized Health Care Education/Training Program; PCP Family Medicine; Visit Provider Student in an Organized Health Care Education/Training Program
DX: F31.9 Bipolar disorder, unspecified (principal); F17.210 Nicotine dependence, cigarettes, uncomplicated; Z79.899 Other long term (current) drug therapy
CPT/HCPCS: 80048; 80307; 82077; 85025; 93005; 99285